=== PATIENT | female | born 1995 | race Caucasian/White ===

== ENCOUNTER → 2016-12-22 | Outpatient (CLI) | payer OTHER ==
[2016-12-17 15:10] VITALS: BMI 19.3
[2016-12-22 10:12] VITALS: BP 133/80; PULSE 68; RESP 16; TEMP 97.9
--- NOTE | 2016-12-22 10:50 | P.HPIM ---
History of Present Illness H&P Date: 12/22/16 Chief Complaint: headaches This is a 21-year-old patient referred by Dr. Paris for chronic headaches. Patient carries a diagnosis of POTS (postural orthostasis tachycardia syndrome) which is associated with migraines. Patient has been taking medications from primary care physician including Fiorinal with some relief. Patient denies adverse drug effects from medications. Patient also denies new-onset weakness, bowel/bladder incontinence, or any other signs or symptoms of cauda equina syndrome. There are no signs of acute intoxication, and no indications of medication diversion or overuse. Patient notes that pain worsens significantly with movement of her head and driving, and improves with rest and medication. Patient has used several types of medications for pain, including NSAIDS, TRAMADOL. Patient HAS NOT had surgery. Patient HAS NOT had injections previously. Patient HAS NOT had physical therapy recently. In addition to above, 13-point review of systems is also negative for chest pain , shortness of breath, changes in vision, changes in hearing, new onset weakness , abdominal pain, diarrhea, extreme fatigue, malaise, fever, skin changes, homicidal or suicidal ideation, or bowel or bladder incontinence. Vital Signs: Reviewed in EMR Gen: WDWN, AAOx3, NAD HEENT: NCAT, EOMI, hearing grossly normal, + tenderness over bilateral occipital ridges Pulm: resp unlabored Neuro: CN II-XII grossly intact, muscle strength lower extremities PRESERVED Past Medical History Past Medical History: Hearing Disorder / Deafness, Hypertension Additional Past Medical History / Comment(s): migraines, POTS disease-BP fluctuates, arthritis, anemia, WBC count low-seeing a specialist,. 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 History of Any Multi-Drug Resistant Organisms: None Reported Past Surgical History: Adenoidectomy, Tonsillectomy Past Anesthesia/Blood Transfusion Reactions: Family Hisory of Malignant Hyperthermia, Malignant Hyperthermia Additional Past Anesthesia/Blood Transfusion Reaction / Comment(s): father has malignant hyperthermia also Past Psychological History: PTSD Additional Psychological History / Comment(s): seasonal affective disorder Smoking Status: Former smoker Past Alcohol Use History: None Reported Additional Past Alcohol Use History / Comment(s): quit smoking 2014, smoked for 8 yrs Past Drug Use History: None Reported - Past Family History Mother Family Medical History: Cancer Medications and Allergies Home Medications Medication Instructions Recorded Confirmed Type Droxidopa [Northera] 600 mg PO TID 12/17/16 12/22/16 History Ferrous Sulfate [Feosol] 325 mg PO BID 12/17/16 12/22/16 History Nexplanon 1 applicate SUBDERMAL DIRECTED 12/17/16 12/22/16 History Allergies Allergy/AdvReac Type Severity Reaction Status Date / Time haloperidol [From Haldol] Allergy Severe throat Verified 12/17/16 15:00 swelling and jaw locked Physical Exam Vitals: Vital Signs Temp Pulse Resp BP 12/22/16 09:56 97.9 F 68 16 133/80 Results Comments: MRI non-contrast of the brain dated 10/26/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 Assessment and Plan (1) Occipital neuralgia Status: Chronic (2) Postural orthostatic tachycardia syndrome Status: Chronic Plan: 1. Explanation: Opioid and psychological risk scores were reviewed. Diagnoses , prognoses, and multiple treatment options including but not limited to physical therapy, interventional therapies, adjuvant medical therapies, narcotic medication therapies, and surgery were discussed with the patient and all questions were answered to the patient's satisfaction. 2. Opioid agreement: no opioids prescribed today 3. Counseling: The patient was counseled extensively on BODY MASS INDEX, EXERCISE. Specifically, the patient was instructed regarding the importance of weight control, and exercise in the context of both chronic pain and overall health. 4. Procedures: bilateral occipital nerve block 5. Consultations: none 6. Investigations: none 7. Medications: none 8. Disposition: f/u for procedure as scheduled PQRS measures: 1-Patient's medications are documented in the chart. 2-Tobacco use is negative 3-Patient has not had a pneumococcal vaccine. 4-Advanced care planning discussed, patient unable to give. 5-Opioid contract NOT signed with the patient. 6-Pain positive, follow-up visit or procedure scheduled 7-Patient's blood pressure measured and documented, and patient will follow up with the primary care due to hypertension. 8-Patient's weight was measured, and body mass index within the normal limits. 9-Patient WAS NOT identified as an unhealthy alcohol user. Time with Patient: Greater than 30
== END ==
LOC: PNWHC3 09:44
PROVIDERS: ATTEND Anesthesiology
DX: M54.81 Occipital neuralgia (principal); I49.5 Sick sinus syndrome; Z79.899 Other long term (current) drug therapy; Z88.8 Allergy status to other drugs, medicaments and biological substances; Z87.891 Personal history of nicotine dependence
CPT/HCPCS: 99211

== ENCOUNTER 2016-12-31 12:24 | Day surgery (SDC) | payer OTHER ==
[~2016-12-31 12:24] MED LIST: LACTATED RINGERS 1,000 ML IV SCH
[2016-12-31 13:26] VITALS: RESP 16; TEMP 98.2
[2016-12-31] MEDS ORDERED: LIDOCAINE 1% 20 ML VIAL (10MG/ML) FOR IV START INTRADERMA ONE (13:38)
[2016-12-31] MEDS ORDERED: IV FLUID CONTINUATION 1,000 ML IV ONE (14:10)
--- NOTE | 2016-12-31 14:15 | P.PCN ---
Date of Procedure: 12/31/16 Preoperative Diagnosis: Postoperative Diagnosis: Procedure(s) Performed: Pre-operative diagnosis: 1- Bilateral occipital neuralgea Post Operative Diagnosis 1- Bilateral occipital neuralgea Procedure: 1- Bilateral occipital nerve block ANESTHESIA: Conscious sedation with Versed 2. mg and fentanyl 100 micrograms EBL: Minimal PROCEDURE INDICATION: The patient with neck pain and headache secondary to occipital neuralgea unresponsive to conservative treatments. PROCEDURE DESCRIPTION / TECHNIQUE: The patient was seen and identified in the preoperative area. Risks, benefits, complications, and alternatives were discussed with the patient, the patient agreed to proceed with the procedure and signed the consent. IV was started. Vital signs remained stable throughout the procedure. Patient was taken to the OR and time out was completed. The patient was placed in the pron (sitting ) position on the procedure table. A pillow was placed under the patients chest to increase the cervical interlaminar space. The cervical area and right occiptial area were prepped with alcohol swab. Critical pause was taken. Vital signs were closely monitored during the procedure. Conscious sedation was used during the procedure to decrease patients anxiety. The right occiptal ridge was palpated and was then accessed with a 25 G needle. Then after negative aspiration, 6 ml of the block solution containing 5 ml of PF Buvicaine 0.75% and dwxamethason 10 mg was injected. Needle was withdrawn intact. Then the same procedure was repeated on the left side and related the left occipital nerve block, after negative aspiration 6 mL of the block solution containing 5 ml bupivacaine 0.75% and 10 mg dexamethason injected after negative aspiration Patient tolerated procedure well. No acute complications. Implants: Indications for Procedure: Operative Findings: Description of Procedure:
[2016-12-31 14:32] VITALS: BP 129/86; PULSE 74
== END 2016-12-31 14:55 | disposition home or self-care (01) ==
LOC: ORPAIN 12:24
PROVIDERS: ATTEND Specialist
DX: M54.81 Occipital neuralgia (principal); Z91.09 Other allergy status, other than to drugs and biological substances
CPT/HCPCS: 81025; 64405; J2250; J1100; J3010; 99152

== ENCOUNTER → 2017-01-21 12:35 | Day surgery (SDC) | payer OTHER ==
[2017-01-18 11:07] VITALS: BMI 18.8
[2017-01-21 10:49] VITALS: TEMP 98.4
--- NOTE | 2017-01-21 11:45 | P.PCN ---
Date of Procedure: 01/21/17 Procedure(s) Performed: Pre-operative diagnosis: 1- Bilateral occipital neuralgea Post Operative Diagnosis 1- Bilateral occipital neuralgea Procedure: 1- Bilateral occipital nerve block ANESTHESIA: Conscious sedation with Versed.2 mg and fentanyl 100 micrograms EBL: Minimal PROCEDURE INDICATION: The patient with neck pain and headache secondary to occipital neuralgea unresponsive to conservative treatments. PROCEDURE DESCRIPTION / TECHNIQUE: The patient was seen and identified in the preoperative area. Risks, benefits, complications, and alternatives were discussed with the patient, the patient agreed to proceed with the procedure and signed the consent. IV was started. Vital signs remained stable throughout the procedure. Patient was taken to the OR and time out was completed. The patient was placed in the pron (sitting ) position on the procedure table. A pillow was placed under the patients chest to increase the cervical interlaminar space. The cervical area and right occiptial area were prepped with alcohol swab. Critical pause was taken. Vital signs were closely monitored during the procedure. Conscious sedation was used during the procedure to decrease patients anxiety. The right occiptal ridge was palpated and was then accessed with a 25 G needle. Then after negative aspiration, 6 ml of the block solution containing 6 ml of PF Buvicaine 0.5% and Kenalog 40 mg was injected. Needle was withdrawn intact. Then the same procedure was repeated on the left side and related the left occipital nerve block, after negative aspiration 6 mL of the block solution containing ropivacaine 0.5% and 40 mg of Kenalog injected after negative aspiration Patient tolerated procedure well. No acute complications.
[2017-01-21 12:03] VITALS: RESP 16
[2017-01-21 12:14] VITALS: BP 152/95; PULSE 76
[~2017-01-21 12:35] MED LIST changes: +IV FLUID CONTINUATION 1,000 ML IV ONE; +LACTATED RINGERS 1,000 ML IV ONE; -LACTATED RINGERS 1,000 ML IV SCH; +LIDOCAINE 1% 20 ML VIAL (10MG/ML) FOR IV START INTRADERMA ONE
== END | disposition home or self-care (01) ==
LOC: ORPAIN 12:35
PROVIDERS: ATTEND Specialist
DX: M54.81 Occipital neuralgia (principal); I10 Essential (primary) hypertension; Z88.8 Allergy status to other drugs, medicaments and biological substances
CPT/HCPCS: 81025; 64405; J2250; J3301; J3010; 99152